=== PATIENT | male | born 1975 | race Native Hawaiian/Other Pacific Islander ===

== ENCOUNTER 2019-03-04 13:30 | Emergency (ER) | payer OTHER ==
[~2019-03-04] VITALS: Ht 165.1 cm; Wt 90.7 kg
[2019-03-04 13:34] VITALS: TEMP 98
[2019-03-04 15:09] LABS: PLATELET COUNT 325 K/uL (142-355)
[2019-03-04 15:33] LABS: POTASSIUM 3.4 mmol/L (3.6-5.2)
[2019-03-04 18:55] VITALS: BP 118/77
== END 2019-03-04 18:55 | disposition short-term general hospital (02) ==
LOC: ED 13:30
DX: L03.113 Cellulitis of right upper limb (principal); M65.841 Other synovitis and tenosynovitis, right hand; M79.641 Pain in right hand
CPT/HCPCS: 36415; 80053; 85027; 85651; 87040; 90471; 90715; 96365; 96366; 96375; 96376; 99284; J1170; J2405; J2543

== ENCOUNTER 2019-03-04 19:01 | Outpatient (CLI) | payer OTHER | END 2019-03-04 20:24 | disposition short-term general hospital (02) | LOC: AMB 19:01 | DX: L03.113 Cellulitis of right upper limb (principal) | CPT/HCPCS: A0425; A0429 ==